=== PATIENT | female | born 1975 | race Two or more races ===

== ENCOUNTER 2018-01-26 14:29 | Emergency (ER) | payer BC, OTHER | END 2018-01-26 17:04 | disposition home or self-care (01) | LOC: FTE 14:29 | DX: S90.861A Insect bite (nonvenomous), right foot, initial encounter (principal); S50.861A Insect bite (nonvenomous) of right forearm, initial encounter; L03.113 Cellulitis of right upper limb; L08.9 Local infection of the skin and subcutaneous tissue, unspecified; F17.210 Nicotine dependence, cigarettes, uncomplicated; W57.XXXA Bitten or stung by nonvenomous insect and other nonvenomous arthropods, initial encounter; Y92.9 Unspecified place or not applicable | CPT/HCPCS: 99283 ==